=== PATIENT | female | born 1950 | race American Indian/Alaskan Native ===

== ENCOUNTER 2016-07-18 09:59 | Outpatient (CLI) | payer MEDICARE, OTHER | END 2016-07-18 10:00 | disposition home or self-care (01) | DX: Z12.31 Encounter for screening mammogram for malignant neoplasm of breast (principal) ==

== ENCOUNTER 2017-08-05 09:03 | Outpatient (CLI) | payer MEDICARE, OTHER ==
--- NOTE | 2017-08-06 21:24 | Mammography Report ---
DATE OF SERVICE: 08/05/2017 DIGITAL SCREENING MAMMOGRAM: 08/05/2017 CLINICAL INDICATION: A 67-year-old for screening. COMPARISON: 07/2016, 03/2015, 03/2014, 02/2013. TECHNIQUE: Routine CC and MLO projections were obtained of the breasts. FINDINGS: Parenchymal tissue within the breasts is predominantly fatty replaced. There are no dominant masses, suspicious microcalcifications, or secondary signs of malignancy. In comparison to the previous studies, there are no significant changes. IMPRESSION: NO MAMMOGRAPHIC EVIDENCE OF MALIGNANCY. NO SIGNIFICANT INTERVAL CHANGES. RECOMMENDATION: Screening mammography is recommended annually. BIRADS category 1 - negative. STANDARD QUALIFYING STATEMENTS: 1. This examination was reviewed with the aid of Computed-Aided Detection (CAD). 2. A negative or benign imaging report should not delay biopsy if clinically suspicious findings are present. Consider surgical consultation if warranted. More than 5% of cancers are not identified by imaging. 3. Dense breasts may obscure an underlying neoplasm. TD: 08/06/2017 22:23
== END 2017-08-05 09:04 | disposition home or self-care (01) ==
LOC: DI.S 09:03
PROVIDERS: ATTEND Physician Assistant
DX: Z12.31 Encounter for screening mammogram for malignant neoplasm of breast (principal)
CPT/HCPCS: 77067

== ENCOUNTER 2018-12-31 16:46 | Outpatient (CLI) | payer MEDICARE, OTHER ==
--- NOTE | 2018-12-31 17:54 | Ultrasound Report ---
Reason: SWELLING OF RIGHT FOOT Procedure Date: 12/31/2018 Accession Number: [id number] / [id number] Procedure: US - Duplex Ext Veins Right CPT Code: FULL RESULT: EXAM: RIGHT LOWER EXTREMITY VENOUS ULTRASOUND EXAM DATE: 12/31/2018 05:02 PM. CLINICAL HISTORY: Right foot swelling for 1 week. COMPARISON: None. TECHNIQUE: Real-time sonographic vascular imaging was performed by the recruitment and outreach assistant through the lower extremity utilizing both color-flow and Doppler spectral analysis. Multiple retail representative static images were saved for review. FINDINGS: Common Femoral Vein (CFV): Normal. CFV-GSV Junction: Normal. Profunda Femoral Vein (PFV): Normal. Femoral Vein (FV) Prox: Normal. Femoral Vein (FV) Mid: Normal. Femoral Vein (FV) Dist: Normal. Popliteal Vein: Normal. Posterior Tibial Veins: Normal. Peroneal Veins: Normal. IMPRESSION: No evidence for deep venous thrombosis. RADIA The call report notification system was initiated by Dr. Mark Christensen at 05:53 PM on 12/31/2018.
== END 2018-12-31 16:47 | disposition home or self-care (01) ==
LOC: DI 16:46
PROVIDERS: ATTEND Nurse Practitioner Family
DX: M79.89 Other specified soft tissue disorders (principal)

== ENCOUNTER 2019-01-30 07:44 | Outpatient (CLI) | payer MEDICARE, OTHER ==
--- NOTE | 2019-02-02 08:37 | DEXA Report ---
Reason: DISORDER OF BONE Procedure Date: 01/30/2019 Accession Number: [id number] / [id number] Procedure: DEX - Dexa Spine and/or Hip CPT Code: FULL RESULT: EXAM: Dexa Spine and/or Hip DATE: 01/30/2019 8:55 AM CLINICAL HISTORY: DISORDER OF BONE TECHNIQUE: Dual energy x-ray absorptiometry (DXA) was performed on a [employer] System. Regions measured are the AP Spine, femoral neck, and if needed forearm. COMPARISON: None. In accordance with the International Society for Clinical Densitometry (ISCD) guidelines, data from previous exams may be reanalyzed using current recommendations and techniques. This is done to allow a more accurate basis for comparison with the current study. FINDINGS: The data for the lumbar spine is as follows: BMD (g/cm/cm) T-SCORE Z-SCORE REGION L1 0.802 -2.7 -1.4 L2 0.813 -3.2 -1.9 L3 0.871 -2.7 -1.4 L4 1.010 -1.6 -0.3 TOTAL 0.880 -2.5 -1.2 NOTE: All evaluable vertebrae are used for classification The data for the hip is as follows: BMD (g/cm/cm) T-SCORE Z-SCORE REGION Neck 0.797 -1.7 -0.3 TOTAL 0.776 -1.8 -0.6 NOTE: The femoral neck or total proximal femur, whichever is lowest, is used for classification. IMPRESSION: THE WHO CLASSIFICATION BASED ON THE INTERNATIONAL REFERENCE STANDARD IS OSTEOPOROSIS. THE FRACTURE RISK IS HIGH. RECOMMENDATION: Patients with diagnosis of osteoporosis or osteopenia should have regular bone mineral density assessment. For those eligible for Medicare, routine testing is allowed once every 2 years. Testing frequency can be increased for patients who have rapidly progressing disease or for those who are receiving medical therapy to restore bone mass. COMMENT: World Health Organization (WHO) definitions for osteoporosis and osteopenia: NORMAL BMD: T-score at -1.0 or higher, fracture risk is low OSTEOPENIA BMD: T-score between -1.0 and -2.5, fracture risk is increased. OSTEOPOROSIS BMD: T-score at -2.5 or lower, fracture risk is high. National Osteoporosis Foundation recommends: 1. Obtain adequate dietary calcium (at least 1200 mg per day) and vitamin D (400-800 international units per day). 2. Participate, as appropriate, in regular weightbearing and muscle-strengthening exercise. 3. Avoid tobacco use and reduce alcohol and caffeine intake. 4. For more detailed information see the website at www.NOF.org.
== END 2019-01-30 07:45 | disposition home or self-care (01) ==
LOC: DI 07:44
PROVIDERS: ATTEND Physician Assistant
DX: M81.0 Age-related osteoporosis without current pathological fracture (principal)
CPT/HCPCS: 77080

== ENCOUNTER 2019-01-30 07:44 | Outpatient (CLI) | payer MEDICARE, OTHER ==
--- NOTE | 2019-01-30 11:39 | Mammography Report ---
Reason: SCREENING MAMMO Procedure Date: 01/30/2019 Accession Number: [id number] / [id number] Procedure: DREA - Screening Mammo w/Declan CPT Code: FULL RESULT: EXAM: Screening Mammo w/Declan DATE: 01/30/2019 8:33 AM CLINICAL HISTORY: Screening encounter. TECHNIQUE: (B) - Bilateral CC and MLO views were obtained. COMPARISON: 08/05/2017 through 03/04/2013. PARENCHYMAL PATTERN: (A) - The breast(s) demonstrate(s) scattered fibroglandular densities. FINDINGS: There are no suspicious masses, calcifications, or areas of distortion. IMPRESSION: Negative examination. BI-RADS category 1. RECOMMENDATION: (ANNUAL) - Recommend routine annual screening mammography. BI-RADS CATEGORY: (1) - Negative. STANDARD QUALIFYING STATEMENTS: 1. This examination was not reviewed with the aid of Computer-Aided Detection (CAD). 2. A negative or benign imaging report should not preclude biopsy if clinically suspicious findings are present. 3. Dense breasts may obscure an underlying neoplasm. 4. This examination was reviewed with the aid of 3D breast imaging (tomosynthesis).
== END 2019-01-30 07:45 | disposition home or self-care (01) ==
LOC: DI 07:44
PROVIDERS: ATTEND Physician Assistant
DX: Z12.31 Encounter for screening mammogram for malignant neoplasm of breast (principal)
CPT/HCPCS: 77063; 77067

== ENCOUNTER 2019-06-25 08:48 | Outpatient (CLI) | payer MEDICARE, OTHER ==
[2019-06-25 17:25] LABS: BASOPHILS # (AUTO) 0.1 10^3/uL (0.0-0.1); BASOPHILS % (AUTO) 1.2 %; EOSINOPHILS # (AUTO) 0.1 10^3/uL (0.0-0.7); EOSINOPHILS % (AUTO) 1.9 %; HGB - HEMOGLOBIN 12.6 g/dL (12.0-16.0); LYMPHOCYTES # (AUTO) 1.4 10^3/uL (1.5-3.5); LYMPHOCYTES % (AUTO) 23.3 %; MEAN CORPUSCULAR HEMOGLOBIN 31.8 pg (27.0-31.0); MEAN CORPUSCULAR HGB CONC 33.1 g/dL (32.0-36.0); MEAN CORPUSCULAR VOLUME 96.2 fL (81.0-99.0); MEAN PLATELET VOLUME 10.1 fL (7.9-10.8); MONOCYTES # (AUTO) 0.5 10^3/uL (0.0-1.0); MONOCYTES % (AUTO) 7.9 %; NEUTROPHILS # (AUTO) 3.9 10^3/uL (1.5-6.6); NEUTROPHILS % (AUTO) 65.4 %; PLT - PLATELET COUNT 287 10^3/uL (130-450); RED BLOOD COUNT 3.96 10^6/uL (4.20-5.40); RED CELL DISTRIBUTION WIDTH 12.8 % (12.0-15.0); WHITE BLOOD COUNT 5.9 x10^3/uL (4.8-10.8)
[2019-06-25 17:52] LABS: % IRON SATURATION 32 % (20-50); ALBUMIN 4.4 g/dL (3.2-5.5); ALBUMIN/GLOBULIN RATIO 1.8 (1.0-2.2); ALKALINE PHOSPHATASE 59 IU/L (42-121); ALT ALANINE AMINOTRANSFERASE 20 IU/L (10-60); AST ASPARTATE AMINOTRANSFERASE 25 IU/L (10-42); BILIRUBIN,TOTAL 0.5 mg/dL (0.2-1.0); BUN - BLOOD UREA NITROGEN 18 mg/dL (6-20); CALCIUM 9.2 mg/dL (8.5-10.3); CARBON DIOXIDE - CO2 27 mmol/L (21-32); CHLORIDE 104 mmol/L (101-111); CREATININE 0.8 mg/dL (0.4-1.0); GFR - MDRD 71 (>89); GLUCOSE 94 mg/dL (70-100); IRON 93 ug/dL (28-170); SODIUM 140 mmol/L (135-145); TOTAL IRON BINDING CAPACITY 293 ug/dL (250-450); TOTAL PROTEIN 6.9 g/dL (6.7-8.2); TRANSFERRIN 209 mg/dL (192-382)
[2019-06-25 18:30] LABS: CRP - C-REACTIVE PROTEIN < 1.0 mg/dL (0-1.0)
[2019-06-27 12:15] LABS: DNA (DS) ANTIBODY 1 IU/mL
[2019-06-29 01:25] LABS: SMOOTH MUSCLE IGG AB 20 U
[2019-06-29 10:17] LABS: ANA SCREEN Positive
== END 2019-06-25 08:49 | disposition home or self-care (01) ==
LOC: LAB.S 08:48
PROVIDERS: ATTEND Nurse Practitioner Family
DX: L66.8 Other cicatricial alopecia (principal); E03.9 Hypothyroidism, unspecified
CPT/HCPCS: 36415; 80053; 81599; 82728; 83516; 83540; 84466; 85025; 85651; 86038; 86140; 86225; 86235

== ENCOUNTER 2019-07-23 14:27 | Outpatient (CLI) | payer MEDICARE, OTHER ==
--- NOTE | 2019-07-23 15:11 | XRAY Report ---
Reason: CHRONIC CONSTIPATION, K59.09 Procedure Date: 07/23/2019 Accession Number: [id number] / [id number] Procedure: XRS - Abdomen 2 View X-Ray CPT Code: 85010 Final Report FULL RESULT: EXAM: ABDOMEN RADIOGRAPHY EXAM DATE: 07/23/2019 02:43 PM. CLINICAL HISTORY: Chronic constipation, K59. 09. COMPARISON: None. TECHNIQUE: 2 views. FINDINGS: Lung Bases: Unremarkable. Bowel Gas Pattern: Within normal limits. No dilated loops or abnormal fluid levels. Free Air: None. Other: S-shaped thoracolumbar scoliosis is noted. IMPRESSION: Nonobstructive bowel gas pattern. RADIA
== END 2019-07-23 14:28 | disposition home or self-care (01) ==
LOC: DI.S 14:27
PROVIDERS: ATTEND Registered Nurse
DX: K59.09 Other constipation (principal)
CPT/HCPCS: 74019

== ENCOUNTER 2019-08-05 10:05 | Outpatient (CLI) | payer MEDICARE, OTHER ==
--- NOTE | 2019-08-05 21:02 | XRAY Report ---
Reason: RADICULOPATHY CERVICAL REGION Procedure Date: 08/05/2019 Accession Number: [id number] / [id number] Procedure: XRS - Cervical Spine 2 View CPT Code: Final Report FULL RESULT: EXAM: CERVICAL SPINE RADIOGRAPHY EXAM DATE: 08/05/2019 10:20 AM. CLINICAL HISTORY: Neck pain for 1 month. Pain shooting down both arms and feeling of "heavy arms". COMPARISONS: None. TECHNIQUE: 3 views. Lateral, frontal, odontoid view. FINDINGS: Alignment: Mild, 2.5 mm, spondylolisthesis is seen at C4-C5. Bones: The cervical vertebral bodies and posterior elements are well visualized from the skull base through C7-T1. No acute fracture is evident. Striated or corduroy appearance is seen in the C5 vertebral body. No acute fracture. Disks: Disk space narrowing is seen at C5-C6 and C6-C7. Mild dorsal osteophyte formation is seen. Associated degenerative uncovertebral change is seen at these levels on frontal film. Facets: Mild degenerative change is seen at C7-T1, likely greater on the left. Soft Tissues: Focal calcification is seen in the right neck, likely secondary to atherosclerotic calcification at carotid bifurcation. No prevertebral soft tissue swelling. The visualized lung apices are clear. IMPRESSION: 1. There is a striated or corduroy appearance to the C5 vertebral body. This could be secondary to hemangioma. 2. Mild spondylolisthesis at C4-C5. 3. C5-C6, C6-C7: Degenerative disk and uncovertebral change. 4. C7-T1: Degenerative facet change greater on the left. RADIA
== END 2019-08-05 10:06 | disposition home or self-care (01) ==
LOC: DI.S 10:05
PROVIDERS: ATTEND Physician Assistant
DX: M43.12 Spondylolisthesis, cervical region (principal); M50.122 Cervical disc disorder at C5-C6 level with radiculopathy
CPT/HCPCS: 72040

== ENCOUNTER 2020-06-22 10:43 | Outpatient (CLI) | payer MEDICARE, OTHER ==
--- NOTE | 2020-06-23 09:38 | Mammography Report ---
BILATERAL DIGITAL SCREENING MAMMOGRAM 3D/2D: 06/22/2020 CLINICAL: Routine screening. Comparison is made to exams dated: 01/30/2019 mammogram, 08/05/2017 mammogram, 07/18/2016 mammogram - [facility], and 03/29/2015 mammogram - [facility]. There are scat tered fibroglandular elements in both breasts. No significant masses, calcifications, or other findings are seen in either breast. There has been no significant interval change. IMPRESSION: NEGATIVE There is no mammographic evidence of malignancy. A 1 year screening mammogram is recommended. This exam was interpreted at Station ID: [id number]. NOTE: For mammograms, a report in lay terms will be sent to the patient. Approximately 15% of breast malignancies will not be visualized mammographically. In the management of a palpable breast mass, a negative mammogram must not discourage biopsy of a clinically suspicious lesion. Electronically Signed By: Willard Pierre M.D. [email or web address]/[email or web address]:06/22/2020 11:44:21 ACR BI-RADS Category 1: Negative 3341F PARENCHYMAL PATTERN: (A) - The breast(s) demonstrate(s) scattered fibroglandular densities. BI-RADS CATEGORY: (1) - 1 RECOMMENDATION: (ANNUAL) - Recommend routine annual screening mammography. [id number] 1 year screening LATERALITY: (B)
== END 2020-06-22 10:44 | disposition home or self-care (01) ==
LOC: DI 10:43
PROVIDERS: ATTEND Registered Nurse
DX: Z12.31 Encounter for screening mammogram for malignant neoplasm of breast (principal)
CPT/HCPCS: 77067

== ENCOUNTER 2021-01-20 07:34 | Outpatient (CLI) | payer MEDICARE, OTHER ==
[2021-01-20 15:03] LABS: ALBUMIN 4.3 g/dL (3.2-5.5); ALBUMIN/GLOBULIN RATIO 1.8 (1.0-2.2); ALKALINE PHOSPHATASE 63 IU/L (42-121); ALT ALANINE AMINOTRANSFERASE 24 IU/L (10-60); AST ASPARTATE AMINOTRANSFERASE 29 IU/L (10-42); BILIRUBIN,TOTAL 0.6 mg/dL (0.2-1.0); BUN - BLOOD UREA NITROGEN 16 mg/dL (6-20); CARBON DIOXIDE - CO2 28 mmol/L (21-32); CHLORIDE 100 mmol/L (101-111); CHOL/HDL RATIO 2.5 (<4.4); CHOLESTEROL 162 mg/dL; CREATININE 0.8 mg/dL (0.4-1.0); GFR - MDRD 71 (>89); GLUCOSE 95 mg/dL (70-100); HDL CHOLESTEROL 65 mg/dL; LDL CHOLESTEROL,CALCULATED 80 mg/dL; LDL/HDL RATIO 1.2 (<4.4); POTASSIUM 4.1 mmol/L (3.5-5.0); SODIUM 137 mmol/L (135-145); TOTAL PROTEIN 6.7 g/dL (6.7-8.2); TRIGLYCERIDES 85 mg/dL; VLDL CHOLESTEROL 17 mg/dL
== END 2021-01-20 07:35 | disposition home or self-care (01) ==
LOC: LAB.S 07:34
PROVIDERS: ATTEND Nurse Practitioner Family
DX: E78.5 Hyperlipidemia, unspecified (principal)
CPT/HCPCS: 36415; 80053; 80061; 83721

== ENCOUNTER 2023-02-27 08:44 | Outpatient (CLI) | payer MEDICARE, OTHER ==
--- NOTE | 2023-02-28 09:41 | Mammography Report ---
BILATERAL DIGITAL SCREENING MAMMOGRAM 3D/2D: 02/27/2023 CLINICAL: Routine screening. Comparison is made to exams dated: 02/13/2022 mammogram, 01/30/2019 mammogram, and 06/22/2020 mammogram - [facility]. There are scattered areas of fibroglandular density in both breasts (category b / 25%-50% glandular t issue). No significant masses, calcifications, or other findings are seen in either breast. There has been no significant interval change. IMPRESSION: NEGATIVE There is no mammographic evidence of malignancy. A 1 year screening mammogram is recommended. Based on the Tyrer Cuzick model (a risk assessment model) the patients lifetime risk is 3.2% and her 10 year risk is 2.6%. According to the ACR, ACS, and NCCN guidelines, an annual breast MRI exam mack g with mammogram is recommended if the patients lifetime risk is 20% or greater. This exam was interpreted at Station ID: [id number]. NOTE: For mammograms, a report in lay terms will be sent to the patient. Approximately 15% of breast malignancies will not be visualized mammographically. In the management of a palpable breast mass, a negative mammogram must not discourage biopsy of a clinically suspicious lesion. Electronically Signed By: Neeraj sharma/rosio:02/27/2023 20:40:37 letter sent: No_Letter ACR BI-RADS Category 1: Negative 3341F PARENCHYMAL PATTERN: (A) - The breast(s) demonstrate(s) scattered fibroglandular densities. BI-RADS CATEGORY: (1) - 1 Mammogram [id number] 1 year screening LATERALITY: (B)
== END 2023-02-27 08:45 | disposition home or self-care (01) ==
LOC: DI.S 08:44
PROVIDERS: ATTEND Registered Nurse
DX: Z12.31 Encounter for screening mammogram for malignant neoplasm of breast (principal)

== ENCOUNTER 2024-03-11 17:23 | Outpatient (CLI) | payer MEDICARE, OTHER | END 2024-03-11 17:24 | disposition EMS.NT | LOC: EMS 17:23 | DX: R10.11 Right upper quadrant pain (principal); R10.12 Left upper quadrant pain; R11.0 Nausea ==

== ENCOUNTER 2024-03-16 08:45 | Outpatient (CLI) | payer MEDICARE, OTHER ==
--- NOTE | 2024-03-17 09:06 | Mammography Report ---
BILATERAL DIGITAL SCREENING MAMMOGRAM 3D/2D: 03/16/2024 CLINICAL: Routine screening. Family history of breast cancer. Comparison is made to exams dated: 02/13/2022 mammogram, 06/22/2020 mammogram, 02/27/2023 mammogram, an d 01/30/2019 mammogram - [facility]. There are scattered areas of fibroglandular density in both breasts (category b / 25%-50% glandular t issue). No significant masses, calcifications, or other findings are seen in either breast. There has been no significant interval change. IMPRESSION: NEGATIVE There is no mammographic evidence of malignancy. A 1 year screening mammogram is recommended. Based on the Tyrer Cuzick model (a risk assessment model) the patient's lifetime risk is 3.0% and her 10 year risk is 2.7%. According to the ACR, ACS, and NCCN guidelines, an annual breast MRI exam mack g with mammogram is recommended if the patient's lifetime risk is 20% or greater. This exam was interpreted at Station ID: [id number]. NOTE: For mammograms, a report in lay terms will be sent to the patient. Approximately 15% of breast malignancies will not be visualized mammographically. In the management of a palpable breast mass, a negative mammogram must not discourage biopsy of a clinically suspicious lesion. Electronically Signed By: Neeraj sharma/rosio:03/16/2024 18:32:24 letter sent: No_Letter ACR BI-RADS Category 1: Negative 3341F PARENCHYMAL PATTERN: (A) - The breast(s) demonstrate(s) scattered fibroglandular densities. BI-RADS CATEGORY: (1) - 1 RECOMMENDATION: (ANNUAL) - Recommend routine annual screening mammography. [id number] 1 year screening LATERALITY: (B)
== END 2024-03-16 08:46 | disposition home or self-care (01) ==
LOC: DI.S 08:45
DX: Z12.31 Encounter for screening mammogram for malignant neoplasm of breast (principal); Z80.3 Family history of malignant neoplasm of breast

== ENCOUNTER 2024-03-16 09:19 | Outpatient (CLI) | payer MEDICARE, OTHER ==
[2024-03-16 14:56] LABS: BASOPHILS # (AUTO) 0.1 10^3/uL (0.0-0.1); EOSINOPHILS # (AUTO) 0.1 10^3/uL (0.0-0.7); EOSINOPHILS % (AUTO) 1.3 %; HCT - HEMATOCRIT 33.7 % (37.0-47.0); LYMPHOCYTES # (AUTO) 1.3 10^3/uL (1.5-3.5); LYMPHOCYTES % (AUTO) 18.8 %; MEAN CORPUSCULAR HEMOGLOBIN 29.3 pg (27.0-31.0); MEAN CORPUSCULAR HGB CONC 32.6 g/dL (32.0-36.0); MEAN CORPUSCULAR VOLUME 89.6 fL (81.0-99.0); MEAN PLATELET VOLUME 9.6 fL (7.9-10.8); MONOCYTES # (AUTO) 0.5 10^3/uL (0.0-1.0); NEUTROPHILS # (AUTO) 4.8 10^3/uL (1.5-6.6); NEUTROPHILS % (AUTO) 70.8 %; PLT - PLATELET COUNT 318 10^3/uL (130-450); RED BLOOD COUNT 3.76 10^6/uL (4.20-5.40); RED CELL DISTRIBUTION WIDTH 13.2 % (12.0-15.0); WHITE BLOOD COUNT 6.7 x10^3/uL (4.8-10.8)
[2024-03-16 16:11] LABS: ALBUMIN 4.1 g/dL (3.2-5.5); ALBUMIN/GLOBULIN RATIO 1.8 (1.0-2.2); ALKALINE PHOSPHATASE 78 IU/L (42-121); ALT ALANINE AMINOTRANSFERASE 23 IU/L (10-60); AST ASPARTATE AMINOTRANSFERASE 28 IU/L (10-42); BILIRUBIN,TOTAL 0.4 mg/dL (0.2-1.0); BUN - BLOOD UREA NITROGEN 14 mg/dL (6-20); CALCIUM 9.2 mg/dL (8.5-10.3); CARBON DIOXIDE - CO2 27 mmol/L (21-32); CHLORIDE 105 mmol/L (101-111); CHOL/HDL RATIO 2.5 (<4.4); CHOLESTEROL 172 mg/dL; CREATININE 0.8 mg/dL (0.6-1.3); GFR - MDRD 70 (>89); GLUCOSE 93 mg/dL (74-104); HDL CHOLESTEROL 69 mg/dL; LDL CHOLESTEROL,CALCULATED 82 mg/dL; LDL/HDL RATIO 1.2 (<4.4); POTASSIUM 3.9 mmol/L (3.5-4.5); SODIUM 137 mmol/L (135-145); THYROID STIMULATING HORMONE 0.29 uIU/mL (0.34-5.60); TOTAL PROTEIN 6.4 g/dL (6.4-8.9); TRIGLYCERIDES 107 mg/dL; VLDL CHOLESTEROL 21 mg/dL
[2024-03-16 19:04] LABS: ESTIMATED AVERAGE GLUCOSE 123 mg/dL (70-100); HEMOGLOBIN A1c% 5.9 % (4.27-6.07)
== END 2024-03-16 09:20 | disposition home or self-care (01) ==
LOC: LAB.S 09:19
PROVIDERS: ATTEND Nurse Practitioner Gerontology
DX: E78.5 Hyperlipidemia, unspecified (principal); R03.0 Elevated blood-pressure reading, without diagnosis of hypertension; Z13.9 Encounter for screening, unspecified; M85.80 Other specified disorders of bone density and structure, unspecified site
CPT/HCPCS: 36415; 80053; 80061; 82306; 83036; 83721; 83735; 84439; 84443; 85025

== ENCOUNTER 2024-04-01 07:50 | Outpatient (CLI) | payer MEDICARE, OTHER ==
[2024-04-01 14:45] LABS: ABSOLUTE RETICS # AUTO 0.035 10^6/uL (0.020-0.110); BASOPHILS # (AUTO) 0.1 10^3/uL (0.0-0.1); BASOPHILS % (AUTO) 1.1 %; EOSINOPHILS # (AUTO) 0.1 10^3/uL (0.0-0.7); EOSINOPHILS % (AUTO) 1.2 %; HCT - HEMATOCRIT 36.7 % (37.0-47.0); HGB - HEMOGLOBIN 11.7 g/dL (12.0-16.0); LYMPHOCYTES % (AUTO) 14.1 %; MEAN CORPUSCULAR HEMOGLOBIN 29.3 pg (27.0-31.0); MEAN CORPUSCULAR HGB CONC 31.9 g/dL (32.0-36.0); MEAN CORPUSCULAR VOLUME 91.8 fL (81.0-99.0); MEAN PLATELET VOLUME 9.7 fL (7.9-10.8); MONOCYTES # (AUTO) 0.6 10^3/uL (0.0-1.0); MONOCYTES % (AUTO) 7.8 %; NEUTROPHILS # (AUTO) 5.5 10^3/uL (1.5-6.6); NEUTROPHILS % (AUTO) 75.7 %; PLT - PLATELET COUNT 347 10^3/uL (130-450); RED CELL DISTRIBUTION WIDTH 13.3 % (12.0-15.0); RETICULOCYTE COUNT % (AUTO) 0.88 % (0.5-2.3); WHITE BLOOD COUNT 7.3 x10^3/uL (4.8-10.8)
[2024-04-01 15:44] LABS: FERRITIN 8.6 ng/mL (11.0-306.8)
== END 2024-04-01 07:51 | disposition home or self-care (01) ==
LOC: LAB.S 07:50
PROVIDERS: ATTEND Nurse Practitioner Gerontology
DX: R79.9 Abnormal finding of blood chemistry, unspecified (principal)
CPT/HCPCS: 36415; 82607; 82728; 82746; 83540; 84466; 85025; 85045